=== PATIENT | male | born 1945 | race Caucasian/White ===

== ENCOUNTER 2024-09-19 08:45 | Emergency (ER) | payer OTHER ==
[2024-09-19 09:06] VITALS: PULSE 103
[2024-09-19] MEDS: Albuterol/Ipratropium 3.0-0.5 MG/3 ML Neb Soln NEB ONE (09:06)
[2024-09-19] MEDS: methylPREDNISolone Sodium Succinate 125 MG/2 ML SDV IV ONE (09:19)
[2024-09-19 09:27] LABS: BASOPHILS PERCENT AUTO 0.1 % (0.2-1.2); EOSINOPHILS PERCENT AUTO 0.1 % (0.0-4.0); HEMATOCRIT 44.7 % (40.0-52.0); HEMOGLOBIN 15.5 g/dL (14.0-18.0); IMMATURE GRAN ABSOLUTE AUTO 0.02 x10^3/uL (0.00-0.07); LYMPHOCYTES ABSOLUTE AUTO 0.5 x10^3/uL (1.0-4.8); LYMPHOCYTES PERCENT AUTO 2.6 % (25.0-50.0); MEAN CORPUSCULAR HEMOGLOBIN 32.4 pg (26.0-32.0); MEAN CORPUSCULAR HGB CONC 34.7 g/dL (32.0-36.0); MEAN CORPUSCULAR VOLUME 93.5 fL (78.0-93.0); MONOCYTES ABSOLUTE AUTO 1.1 x10^3/uL (0.0-0.8); MONOCYTES PERCENT AUTO 6.5 % (2.0-11.0); NEUTROPHILS ABSOLUTE AUTO 15.5 x10^3/uL (1.8-7.7); NEUTROPHILS PERCENT AUTO 90.6 % (50.0-80.0); PLATELET COUNT,PLT 202 x10^3/uL (130-400); RED BLOOD CELL COUNT 4.78 x10^6/uL (4.5-6.0)
[2024-09-19] MEDS: cefTRIAXone 1 GM Vial IVPUSH ONE (09:35)
[2024-09-19] MEDS: Azithromycin 500 MG in Sodium Chloride 0.9% 250 ML IV ONE (09:36)
[2024-09-19 09:38] LABS: HCO3 VENOUS,POC 29 mmol/L (22-29); O2 SATURATION VENOUS,POC 67 %; PCO2 VENOUS,POC 53 mmHg (41-51); PH VENOUS,POC 7.34 pH (7.32-7.43); PO2 VENOUS,POC 38 mmHg
[2024-09-19 09:41] LABS: WHITE BLOOD CELL COUNT,WBC 17.1 x10^3/uL (4.0-10.0)
[2024-09-19 09:45] LABS: LACTIC ACID 1.6 mmol/L (0.4-2.0)
[2024-09-19 09:54] LABS: A/G RATIO 1.14; BILIRUBIN TOTAL 2.3 mg/dL (0.2-1.0); C-REACTIVE PROTEIN 2.95 mg/dL (<=0.50); CREATININE 0.9 mg/dL (0.70-1.30); EST CRCL DRUG DOSING (CG) 62.72 mL/min; MAGNESIUM 1.8 mg/dL (1.8-2.4); POTASSIUM,K 4.6 mmol/L (3.5-5.1); PROTEIN TOTAL,TP 7.5 g/dL (6.4-8.2)
[2024-09-19 09:55] LABS: PROTHROMBIN TIME 10.4 SEC (8.9-11.5)
[2024-09-19 09:56] LABS: ANION GAP 11.6 mmol/L (5-15)
[2024-09-19 11:31] VITALS: BP 133/80
== END 2024-09-19 11:25 | disposition short-term general hospital (02) ==
LOC: VM.ED 08:45
DX: J18.9 Pneumonia, unspecified organism (principal); J44.9 Chronic obstructive pulmonary disease, unspecified; Z88.6 Allergy status to analgesic agent
CPT/HCPCS: 36415; 71045; 80053; 82803; 83605; 83735; 83880; 84484; 85025; 85379; 85610; 85730; 86140; 87040; 87070; 87077; 87205; 87428-QW; 93010; 94640; 96365; 96375; 99284; 99285-25; J0456; J0696; J2919; J7050; J7620-GY